=== PATIENT | female | born 1985 | race Caucasian/White ===

== ENCOUNTER → 2017-12-13 11:46 | Outpatient (CLI) | payer MEDICAID, SELFPAY | PROVIDERS: Family Provider Family Medicine; PCP Family Medicine; Visit Provider Physician Assistant | DX: R00.0 Tachycardia, unspecified (principal); R00.2 Palpitations | CPT/HCPCS: 93225; 93226 ==

== ENCOUNTER 2018-04-18 01:29 | Emergency (ER) | payer MEDICAID, SELFPAY ==
[2018-04-18 01:30] VITALS: PULSE 129; RESP 18; TEMP 36.6; O2SAT 99; BMI 18.3
[2018-04-18 01:35] VITALS: BP 144/86; PULSE 129; RESP 17; TEMP 36.6; O2SAT 99
--- NOTE | 2018-04-18 01:48 | RAD_ITS ---
HISTORY: Chest Pain EXAM:XR Chest 1 View: COMPARISON: None FINDINGS: EKG leads in place. Normal heart size. The mediastinum is not widened. Prominent lung volumes. Bilateral nipple shadows, more noticeable on the right. No vascular congestion, pleural effusion, or acute pulmonary infiltration. No pneumothorax. The bony thorax appears intact. IMPRESSION: No acute cardiopulmonary disease. at 0240 Reported and signed by: Florencio Bui MD Electronically Signed: Florencio Bui, at 2:39 EST Tel , Service support , RAD/Chest 1 View (Portable)
--- NOTE | 2018-04-18 01:49 | EKG12_ITS ---
Test Reason : CP Blood Pressure : / mmHG Vent. Rate : 113 BPM Atrial Rate : 113 BPM P-R Int : 128 ms QRS Dur : 092 ms QT Int : 322 ms P-R-T Axes : 073 086 069 degrees QTc Int : 441 ms Sinus tachycardia Otherwise normal ECG Confirmed by AISHWARYA RAHMAN, DON ([id number]), editorial cartoonist JEAN-CLAUDE ZAVALA ([id number]) on 04/23/2018 2:44:00 PM Referred By: VIDYA Confirmed By:DON NEFF MD
[2018-04-18] MEDS: 0.9% Normal Saline 1,000 ML 1000 ML IV (02:01)
[2018-04-18 02:12] LABS: Absolute Lymphocyte Count 1.09 X10^3/ul (0.83-4.51); Absolute Neutrophil Count 1.7 X10^3/uL (2.0-7.7); Basophil# 0.02 X10^3/uL; Basophil% 0.6 % (0-1); Eosinophil# 0.02 X10^3/uL; Eosinophils% 0.6 % (0-5); Hematocrit 36.2 % (37-47); Hemoglobin 12.3 g/dl (12.0-15.0); Lymphocyte # 1.09 X10^3/ul (4.0); Lymphocyte % 35.3 % (19-41); Mean Corpuscular Hgb 28.5 pg (27.0-32.0); Mean Platelet Vol. 10.4 fl (6.2-12.0); Monocyte# 0.23 X10^3/uL; Monocyte% 7.4 % (0-10); Neutrophil # 1.73 X10^3/uL (2.7-7.7); Neutrophil % 56.1 % (47-70); POSITIVE COUNT NO; POSITIVE DIFFERENTIAL NO; POSITIVE MORPHOLOGY NO; Platelet Count 165 K/mm3 (150-450); RBC Distribution Width CV 13.5 % (11.6-14.6); RBC Distribution Width SD 40.8 fl (35.1-43.9); Red Blood Count 4.31 M/mm3 (4.2-5.4); White Blood Count 3.1 K/mm3 (4.4-11.0)
[2018-04-18 02:28] LABS: AST(SGOT) 15 U/L (15-37); Alanine Aminotransfer ALT/SGPT 21 U/L (13-56); Albumin, Serum 3.6 g/dL (3.2-5.0); Alkaline Phosphatase 41 U/L (45-117); Anion Gap 9 (5-15); BUN 12 mg/dL (7-18); BUN/Creat Ratio 17.1 RATIO (10-20); Calcium,Total 8.3 mg/dL (8.5-10.1); Chloride 104 mmol/L (98-107); EST Glomerular Filtration Rate 102 mL/min (>60); Est Glom Filt Rate - Afr Amer 123 mL/min (>60); Estimated Creatinine Clearance 99.07 ml/min; Globulin 3.6 g/dL (2.2-4.2); Glucose 109 mg/dL (74-106); Lipase 75 U/L (73-393); Potassium 3.3 mmol/L (3.5-5.1); Protein, Total 7.2 g/dL (6.4-8.2); Sodium Level 138 mmol/L (136-145)
[2018-04-18] MEDS: Ketorolac 30 MG/ML Syringe IV (02:43)
[2018-04-18 02:53] VITALS: BP 123/83; PULSE 113; RESP 18; TEMP 37.2; O2SAT 100
[2018-04-18 02:53] LABS: Pregnancy, Serum, hCG Quali. NEGATIVE Negative (0-9 Nonpreg)
--- NOTE | 2018-04-18 03:01 | ED.VISSUMM ---
- ER Visit Summary Date of Service: 04/18/18 Chief Complaint: Lesions to the labia History of Present Illness: The patient is a [address] [facility]. She reports that she had an IUD placed approximately 1 month ago. She reports that 4 days ago she noticed a lesion on her right labia majora. She reports that she has had watery drainage from this area. She now has a lesion on her left labia majora. States that she has burning pain at times. However, she is not having any pain currently. She is sexually active with a single partner. They have been having unprotected intercourse. She does not get cold sores and he does not either. Patient on review of systems reports she has had a fever to 100.5 degrees. She is also had chills and cold sweats. She reports that she has had abdominal pain that is 9 out of 10 at worst and 2 out of 10 currently. It began 3 days ago. Is been constant today. States this is worsened by nothing relieved by nothing. She has had nausea without vomiting. No diarrhea. No dysuria or frequency. Patient also complains that she has chest pain that began yesterday. States that lasts hours at a time. This is not brought on or worsened by exertion. Nothing makes this better. 6 out of 10 at onset. She is pain-free currently. She reports that she is been mildly short of breath with this as well. She denies any sore throat or cough. She reports that she has a headache that comes and goes. Is not present now. It is 3 out of 10 at worst and last seconds at a time. She also complains of generalized weakness. Physical Examination: Vitals: 97.9, 144/86, 129, 18, 98% room air which is not hypoxic. General: Well-nourished and well-developed. Head: Normocephalic atraumatic. Neck: Supple, no lymphadenopathy. No JVD. Nontender. Cardiovascular: Tachycardic regular rhythm. No murmurs. Respiratory: No respiratory distress. Clear to auscultation bilaterally. Abdominal: Soft, nontender, nondistended, normal bowel sounds. No guarding, rebound, or peritoneal signs. : Lesion x3 to the right labia majora that are scabbed over. There is also one lesion on the left labia majora. The cervix is inflamed with a moderate amount of a thin, cloudy drainage. The IUD strings are in place. Back: Nontender. Extremities: Nontender, no edema. Skin: Normal color, no rash. Neurologic: Alert and oriented ?3. Cranial nerves II through XII are intact. Normal strength and sensation. Psych: Normal affect. Test Results: EKG shows sinus tach 113 with no acute changes. Troponin is negative. test is negative. LFTs are marked for an alk phos of 41. Lipase is normal. Chem-7 is more for potassium 3.3, glucose of 109, calcium 8.3. CBC is marked for a white count of 3.1 and hematocrit of 36.2. Chest x-ray is normal. Emergency Department Course and Treatment: Patient was given a liter of normal saline. She was treated with Toradol IV and acyclovir p.o. A herpes culture was sent off. Treatment Plan: Patient was discussed with Dr. Jaqueline Potts. This time she will be discharged with acyclovir and [place]. Instructed to follow-up today for repeat exam. Return to the emergency department for any worsening symptoms. Disposition: To home in improved and stable condition. Impression: 1. Vaginal lesions. 2. Atypical chest pain. This note was generated with [employer] dictation software. It may contain incorrect words, spelling, and punctuation that were not noted in review of the chart prior to signing ED Disposition - Plan for ED Patient: Chief Complaint: Abscess Instructions: ED Herpes Simplex Virus Type 2 Prescriptions: Hydrocodone Bitart/Apap 5-325 [[place] 5MG-325MG] 1 tablet PO Q4H PRN PRN 2 Days #10 tablet PRN Reason: Pain Naproxen [Naprosyn] 500 mg PO BID #14 tablet Acyclovir 400 mg PO TID #30 tablet Referrals: Jaqueline Potts MD [STAFF PHYSICIAN] - 1 Day for another exam
[2018-04-18 03:02] VITALS: BP 122/80; PULSE 107; RESP 18; O2SAT 100
--- NOTE | 2018-04-18 03:04 | ED.DCSUM_ITS ---
- ER Visit Summary Date of Service: 04/18/18 Chief Complaint: Lesions to the labia History of Present Illness: The patient is a [address] Godfrey [facility]. She reports that she had an IUD placed approximately 1 month ago. She reports that 4 days ago she noticed a lesion on her right labia majora. She reports that she has had watery drainage from this area. She now has a lesion on her left labia majora. States that she has burning pain at times. However, she is not having any pain currently. She is sexually active with a single partner. They have been having unprotected intercourse. She does not get cold sores and he does not either. Patient on review of systems reports she has had a fever to 100.5 degrees. She is also had chills and cold sweats. She reports that she has had abdominal pain that is 9 out of 10 at worst and 2 out of 10 currently. It began 3 days ago. Is been constant today. States this is worsened by nothing relieved by nothing. She has had nausea without vomiting. No diarrhea. No dysuria or frequency. Patient also complains that she has chest pain that began yesterday. States that lasts hours at a time. This is not brought on or worsened by exertion. Nothing makes this better. 6 out of 10 at onset. She is pain-free currently. She reports that she is been mildly short of breath with this as well. She denies any sore throat or cough. She reports that she has a headache that comes and goes. Is not present now. It is 3 out of 10 at worst and last seconds at a time. She also complains of generalized weakness. Physical Examination: Vitals: 97.9, 144/86, 129, 18, 98% room air which is not hypoxic. General: Well-nourished and well-developed. Head: Normocephalic atraumatic. Neck: Supple, no lymphadenopathy. No JVD. Nontender. Cardiovascular: Tachycardic regular rhythm. No murmurs. Respiratory: No respiratory distress. Clear to auscultation bilaterally. Abdominal: Soft, nontender, nondistended, normal bowel sounds. No guarding, rebound, or peritoneal signs. : Lesion x3 to the right labia majora that are scabbed over. There is also one lesion on the left labia majora. The cervix is inflamed with a moderate amount of a thin, cloudy drainage. The IUD strings are in place. Back: Nontender. Extremities: Nontender, no edema. Skin: Normal color, no rash. Neurologic: Alert and oriented ?3. Cranial nerves II through XII are intact. Normal strength and sensation. Psych: Normal affect. Test Results: EKG shows sinus tach 113 with no acute changes. Troponin is negative. test is negative. LFTs are marked for an alk phos of 41. Lipase is normal. Chem-7 is more for potassium 3.3, glucose of 109, calcium 8.3. CBC is marked for a white count of 3.1 and hematocrit of 36.2. Chest x- ray is normal. Emergency Department Course and Treatment: Patient was given a liter of normal saline. She was treated with Toradol IV and acyclovir p.o. A herpes culture was sent off. Treatment Plan: Patient was discussed with Dr. Jaqueline Potts. This time she will be discharged with acyclovir and [place]. Instructed to follow-up today for repeat exam. Return to the emergency department for any worsening symptoms. Disposition: To home in improved and stable condition. Impression: 1. Vaginal lesions. 2. Atypical chest pain. This note was generated with [employer] dictation software. It may contain incorrect words, spelling, and punctuation that were not noted in review of the chart prior to signing ED Disposition - Plan for ED Patient: Chief Complaint: Abscess Instructions: ED Herpes Simplex Virus Type 2 Prescriptions: Hydrocodone Bitart/Apap 5-325 [[place] 5MG-325MG] 1 tablet PO Q4H PRN PRN 2 Days #10 tablet PRN Reason: Pain Naproxen [Naprosyn] 500 mg PO BID #14 tablet Acyclovir 400 mg PO TID #30 tablet Referrals: Jaqueline Potts MD [STAFF PHYSICIAN] - 1 Day for another exam
[2018-04-18] MEDS: HYDROcodone Bitartrate/Apap 5/325 Tablet PO (03:13)
[2018-04-18] MEDS: Acyclovir 200 MG Capsule 400 MG PO (03:16)
[2018-04-18 04:45] LABS: Chlamydia Trachomatis by PCR Negative (Negative); Neisserai gonorrhoeae by PCR Negative (Negative); Probe Check PASS; Sample Adequacy Control PASS; Specimen Processing Control PASS
--- NOTE | 2018-04-25 20:11 | ED.RN ---
Pt was notified of positive herpes culture. Pt was already treated appropriately with acyclovir. Pt reminded to follow up with Dr. Potts. Pt denies further questions.
== END 2018-04-18 03:19 | disposition home or self-care (01) ==
PROVIDERS: Emergency Provider Emergency Medicine; Family Provider Family Medicine; PCP Family Medicine
DX: N90.89 Other specified noninflammatory disorders of vulva and perineum (principal); R07.89 Other chest pain; R50.9 Fever, unspecified; R06.00 Dyspnea, unspecified; R10.9 Unspecified abdominal pain; R10.30 Lower abdominal pain, unspecified; R11.0 Nausea; R53.1 Weakness; Z85.820 Personal history of malignant melanoma of skin; Z97.5 Presence of (intrauterine) contraceptive device; F17.200 Nicotine dependence, unspecified, uncomplicated
CPT/HCPCS: 71045; 80053; 83690; 84484; 84703; 85025; 87255; 87491; 87591; 93005; 96361; 96374; 99284; J7030; A4216

== ENCOUNTER 2019-02-04 20:30 | Emergency (ER) | payer MEDICAID, SELFPAY ==
[2019-02-04 20:31] VITALS: BP 160/84; PULSE 121; RESP 18; TEMP 36.4; O2SAT 100; BMI 23.4
--- NOTE | 2019-02-04 20:44 | EKG12_ITS ---
Test Reason : CHEST OTHER Blood Pressure : / mmHG Vent. Rate : 097 BPM Atrial Rate : 097 BPM P-R Int : 128 ms QRS Dur : 090 ms QT Int : 340 ms P-R-T Axes : 055 083 072 degrees QTc Int : 431 ms Normal sinus rhythm Normal ECG Confirmed by CHANTELLE GRIDER ([id number]), sound editor ONELIA GLOVER ([id number]) on 02/07/2019 11:16:20 AM Referred By: AMAURY Confirmed By:CHANTELLE GRIDER
--- NOTE | 2019-02-04 20:45 | ED.VIS.GEN ---
History of Present Illness Chief Complaint: Chest Other Informant: Patient Onset: Yesterday Context: Sudden Onset Timing: Continuous, Waxes and wanes Quality: Left-sided chest pain Location: Left side anterior axillary line to posterior axillary line ribs 8-12 Current Severity: Mild Maximum Severity: Severe Worsened by: Breathing Relieved by: Nothing Associated Symptoms: Dyspnea and dyspnea on exertion Narrative: She is a 33-year-old woman who presents with pleuritic left-sided chest pain that started 2 days ago. She has no URI symptoms. There is no recent history of trauma. She states she had trauma to her chest 3 years ago. This was a work-related issue. She denies dysuria, frequency, urgency or hematuria. She denies history of renal ureterolithiasis. She denies rhinorrhea, congestion or postnasal drainage. She denies cough. She denies referred pain. She does report nausea without vomiting diarrhea. She has not noted a rash. Prior similar symptoms: No Recent Illness/Hospitalization: No - Past Medical History (1) No significant past medical history Status: Acute Past Medical History - Allergies and Home Meds Allergies/Adverse Reactions: Allergies No Known Allergies Allergy (Verified 04/18/18 01:37) Primary Care Physician: NOT,DEFINED [NON-STAFF] - Prior records reviewed: No Past Medical History: None Surgical History: no surgical history Lives: Alone Smoking Status: Current every day smoker Alcohol: Rare Drugs: None Review of Systems General: Denies: Chills, Fever, Subjective, Sweats Eyes: Denies: Visual changes - bilaterally, Diplopia ENT: Denies: Rhinorrhea, Sore throat Cardiovascular: Reports: Chest pain. Denies: Palpitations, Heart racing, -, - Respiratory: Reports: Dyspnea, Dyspnea on exertion. Denies: Cough, Sputum, Orthopnea, Paroxysmal nocturnal dyspnea, -, - Gastrointestinal: Denies: Abdominal pain, Nausea, Vomiting, Diarrhea, Melena, Hematochezia Genitourinary: Denies: Dysuria, Hematuria, Frequency Musculoskeletal: Denies: Myalgias, Arthralgias, Neck pain, Back pain, Swelling, Extremity Pain Skin: Denies: Rash, Abscess, Wounds Neurological: Denies: Headache, Weakness, Numbness Hematologic: Denies: Easy bruising, Easy bleeding Physical Exam Vital Signs/Narrative: Vital Signs Temp Pulse Resp BP Pulse Ox 02/04/19 20:31 97.5 F L 121 H 18 160/84 H 100 Inital Vital Signs reviewed: Yes General: Well nourished, Well developed, No Acute Distress Head: Normocephalic, Atraumatic Eyes: Perrl, EOMI ENT: Moist mucous membranes, No rhinorrhea Neck: Supple, Nontender Cardiovascular: Regular rate, Regular rhythm, No murmurs, Normal S1, Normal S2 Respiratory: No distress, CTA bilaterally, Chest tenderness - Left anterior axial line to posterior axillary line over ribs 8 through 12. Abdomen: Soft, Nontender, Nondistended, Normal bowel sounds, No masses. Negative for: Hepatomegaly, Splenomegaly Back: Nontender, Normal Inspection Extremities: Nontender, No edema Skin: Normal color, No rash, No Trauma. Negative for: Cyanosis, Diaphoresis, Jaundice Neurological: Alert, Oriented x3, Cranial nerves II-XII grossly intact, Normal Strength, Normal Sensation Psychological: Normal affect, Normal Mood Diagnostic/Tx/Re-eval Chest X-Ray - ED: 2 View, Read by ED Physician, - - The cardiac size and silhouette are normal. There is hyper aeration of the lungs. Osseous structures appear normal. There is no evidence of pneumothorax or effusion. X-ray was interpreted at 2117. 02/04/19 21:05 Chest PA and Lateral [RAD] Stat Laboratory Results 02/04/19 02/04/19 02/04/19 20:55 20:55 20:55 WBC 6.5 RBC 4.70 Hgb 14.2 Hct 42.9 MCV 91.3 MCH 30.2 MCHC 33.1 RDW Std Deviation 40.9 RDW Coeff of Yessica 12.3 Plt Count 241 MPV 10.5 Immature Gran % (Auto) 0.200 Neut % (Auto) 48.9 Lymph % (Auto) 43.2 H Terry % (Auto) 4.7 Eos % (Auto) 2.1 Baso % (Auto) 0.9 Absolute Neuts (auto) 3.2 Absolute Lymphs (auto) 2.82 Nucleated RBC % 0 D-Dimer Quant (PE/DVT) < 0.27 L Sodium 141 Potassium 3.2 L Chloride 106 Carbon Dioxide 28.0 Anion Gap 7 BUN 10 Creatinine 0.83 Estim Creat Clear Calc 92.87 Est GFR (MDRD) Af Amer 101 Est GFR (MDRD) Non-Af 84 BUN/Creatinine Ratio 12.1 Glucose 111 H Calcium 9.2 Serum , Qual 02/04/19 20:55 WBC RBC Hgb Hct MCV MCH MCHC RDW Std Deviation RDW Coeff of Yessica Plt Count MPV Immature Gran % (Auto) Neut % (Auto) Lymph % (Auto) Terry % (Auto) Eos % (Auto) Baso % (Auto) Absolute Neuts (auto) Absolute Lymphs (auto) Nucleated RBC % D-Dimer Quant (PE/DVT) Sodium Potassium Chloride Carbon Dioxide Anion Gap BUN Creatinine Estim Creat Clear Calc Est GFR (MDRD) Af Amer Est GFR (MDRD) Non-Af BUN/Creatinine Ratio Glucose Calcium Serum , Qual NEGATIVE Laboratory test results are normal. test was negative. - Rhythm Strip Rhythm Strip: Sinus Tach Rate: 104 Ectopy: None - EKG Initial EKG Interpretation: Sinus Rhythm - EKG reveals a sinus rhythm rate of 97. MS interval is 120 ms. QS duration 90 ms. QT duration 340 ms. [place] is normal. The EKG is normal. - Medical Decision Making Patient is not PERC negative. Will obtain d-dimer. Chest x-ray was obtained to assess for pneumonia, pneumothorax or other cause of pleuritic chest pain. EKG was obtained and reveals a sinus rhythm and no evidence of ischemia. test was obtained in the event that a CTA of the chest was needed. Basic metabolic panel was obtained to assess renal function. With normal d-dimer and normal chest x-ray will treat with NSAIDs for pleuritic chest pain. ED Disposition - Plan for ED Patient: Disposition: Home or Assisted Living Diagnosis: Pleuritic chest pain Instructions: Pleurisy Prescriptions: Naproxen [Naprosyn] 500 mg PO BID #14 tab Transmission Status: Pending to [facility] Referrals: NOT,DEFINED [NON-STAFF] - Additional Instructions: Follow-up with your primary care provider at the [facility] if no improvement in 3 to 5 days.
[2019-02-04] MEDS: Ketorolac 15 MG/ML Vial IV (21:00)
[2019-02-04 21:03] LABS: Absolute Lymphocyte Count 2.82 X10^3/uL (0.83-4.51); Absolute Neutrophil Count 3.2 X10^3/uL (2.0-7.7); Basophil# 0.06 X10^3/uL; Basophil% 0.9 % (0-1); Eosinophil# 0.14 X10^3/uL; Eosinophils% 2.1 % (0-5); Hematocrit 42.9 % (37-47); Hemoglobin 14.2 g/dL (12.0-15.0); Lymphocyte # 2.82 X10^3/ul (4.0); Lymphocyte % 43.2 % (19-41); Mean Corp Hgb Conc 33.1 g/dL (32-36); Mean Corpuscular Hgb 30.2 pg (27.0-32.0); Mean Corpuscular Volume 91.3 fL (81-99); Mean Platelet Vol. 10.5 fl (6.2-12.0); Monocyte# 0.31 X10^3/uL; Monocyte% 4.7 % (0-10); NRBC Flagged by Analyzer 0 % (0-5); Neutrophil # 3.19 X10^3/uL (2.7-7.7); Neutrophil % 48.9 % (47-70); Platelet Count 241 K/mm3 (150-450); RBC Distribution Width CV 12.3 % (11.6-14.6); RBC Distribution Width SD 40.9 fl (35.1-43.9); White Blood Count 6.5 K/mm3 (4.4-11.0)
--- NOTE | 2019-02-04 21:05 | RAD_ITS ---
STUDY: X-RAY CHEST REASON FOR EXAM: Female, 33 years old. left sided pleuritic chest pain and dyspnea TECHNIQUE: PA and lateral views of the chest. COMPARISON: April 18, 2018 FINDINGS: The lungs are clear and expanded. There is no demonstrated pleural abnormality. Normal size heart. Normal mediastinum and felipe. Normal visualized pulmonary arteries. Normal visualized aortic arch and descending thoracic aorta. Normal visualized thoracic spine. Normal visualized ribs, clavicles, and shoulders. There is no demonstrated abnormality of the visualized soft tissue structures of the upper abdomen. RAD/Chest PA and Lateral IMPRESSION: Normal x-ray examination of the chest. Electronically Signed: Giovani gAuilar MD at 21:27 EST , Service support ,
[2019-02-04 21:21] LABS: Internal QC Validated? YES +Cl - CLEAR BKGD; Pregnancy, Serum, hCG Quali. NEGATIVE Negative
[2019-02-04 21:22] LABS: Anion Gap 7 (5-15); BUN 10 mg/dL (7-18); BUN/Creat Ratio 12.1 RATIO (10-20); Calcium,Total 9.2 mg/dL (8.5-10.1); Chloride 106 mmol/L (98-107); Creatinine, Serum 0.83 mg/dL (0.55-1.02); EST Glomerular Filtration Rate 84 mL/min (>60); Est Glom Filt Rate - Afr Amer 101 mL/min (>60); Estimated Creatinine Clearance 92.87 ml/min; Glucose 111 mg/dL (74-106); Potassium 3.2 mmol/L (3.5-5.1); Sodium Level 141 mmol/L (136-145)
[2019-02-04 21:25] LABS: D-Dimer Quantitative (DVT/PE) < 0.27 FEU/ug/m (0.27-0.49)
[2019-02-04 21:48] VITALS: PULSE 99; RESP 12; O2SAT 98
== END 2019-02-04 21:55 | disposition home or self-care (01) ==
PROVIDERS: Emergency Provider Emergency Medicine
DX: R07.89 Other chest pain (principal); R11.0 Nausea; R06.00 Dyspnea, unspecified; F17.200 Nicotine dependence, unspecified, uncomplicated
CPT/HCPCS: 71046; 80048; 84703; 85025; 85379; 93005; 96374; 99284; J7030; A4216

== ENCOUNTER 2019-03-24 13:41 | Emergency (ER) | payer MEDICAID, SELFPAY ==
[2019-03-24 13:42] VITALS: BP 132/97; PULSE 132; RESP 16; TEMP 36.9; O2SAT 100; BMI 20.3
[2019-03-24 14:14] LABS: Mucous, Urine 0 SEEN /hpf (<or=2+)
[2019-03-24 14:17] LABS: Color, Urine Yellow (Yellow); Glucose, Dipstick Normal (Normal); Internal QC Validated? YES +Cl - CLEAR BKGD; Ketone-Dipstick Negative (Negative); Leukocyte Esterase-Dipstick Negative /ul (Negative); Nitrite-Dipstick Negative (Negative); Occult Blood-Urine Negative /ul (Negative); Protein-Dipstick Negative (Negative); Specific Gravity, Urine 1.015 (1.002-1.030); Urine Bilirubin Dipstick Negative (Negative); Urine Clarity Sl. Cloudy (Clear); Urine Urobilinogen Normal (Normal)
[2019-03-24 14:18] LABS: Pregnancy, Urine Negative Negative
[2019-03-24 14:20] LABS: Amorphous Sediment 2+; Bacteria 1+ /hpf (None Seen); Red Blood Cells-Urine 0-5 SEEN /hpf (0-5); Squamous Epithelial Cells - UA 0-5 SEEN /hpf (5-10); White Blood Cells 0-5 SEEN /hpf (0-5)
--- NOTE | 2019-03-24 14:48 | CT_ITS ---
STUDY: CT ABDOMEN AND PELVIS WITHOUT CONTRAST REASON FOR EXAM: Female, 33 years old. Right flank pain RADIATION DOSAGE (If Supplied By Facility): CTDIvol = ( 6.28 ) mGy, DLP = ( 302.9 ) mGycm TECHNIQUE: Transaxial images were obtained from the dome of the diaphragm to the symphysis pubis without oral contrast, and without intravenous contrast. Sagittal and coronal images were reconstructed. Individualized dose optimization techniques were used for this CT. COMPARISON: None. FINDINGS: The visualized lung bases are unremarkable. The visualized portions of the heart are within normal limits. Normal liver. Normal gallbladder and extrahepatic biliary system. Normal spleen. Normal pancreas. Normal bilateral adrenal glands. Normal right kidney. Normal left kidney. There is a punctate 1 mm calcification in the right pelvis, most likely phleboliths with a low probability of being a distal ureteral stone. There is no obscure an hydronephrosis. Normal visualized stomach. Normal small intestine. Normal colon. The appendix is visualized and appears normal. Normal abdominal aorta. Normal inferior vena cava. Normal retroperitoneum. Normal urinary bladder. IUD is in place. Normal abdominal wall. There is inflammatory change in the inferior portion of the gluteal cleft. Normal osseous structures. CT/Abdomen/Pelvis without Cont IMPRESSION: 1. No hydronephrosis. 2. 1 mm right pelvic phlebolith, less likely distal ureteral stone. 3. Inflammatory change in the gluteal cleft. Electronically Signed: Joe Costa, at 16:29 EST Tel , Service support ,
[2019-03-24] MEDS: 0.9% Normal Saline 1,000 ML 125 ML IV (15:00)
[2019-03-24 15:10] LABS: Absolute Neutrophil Count 3.1 X10^3/uL (2.0-7.7); Basophil# 0.03 X10^3/uL; Basophil% 0.6 % (0-1); Eosinophil# 0.08 X10^3/uL; Eosinophils% 1.6 % (0-5); Hematocrit 36.5 % (37-47); Hemoglobin 12.2 g/dL (12.0-15.0); Lymphocyte % 29.6 % (19-41); Mean Corp Hgb Conc 33.4 g/dL (32-36); Mean Corpuscular Hgb 30.1 pg (27.0-32.0); Mean Corpuscular Volume 90.1 fL (81-99); Mean Platelet Vol. 10.4 fl (6.2-12.0); Monocyte# 0.31 X10^3/uL; Monocyte% 6.1 % (0-10); NRBC Flagged by Analyzer 0 % (0-5); Neutrophil # 3.14 X10^3/uL (2.7-7.7); Neutrophil % 61.9 % (47-70); Platelet Count 199 K/mm3 (150-450); RBC Distribution Width CV 12.5 % (11.6-14.6); RBC Distribution Width SD 41.6 fl (35.1-43.9); Red Blood Count 4.05 M/mm3 (4.2-5.4); White Blood Count 5.1 K/mm3 (4.4-11.0)
[2019-03-24 15:26] LABS: Anion Gap 5 (5-15); BUN 11 mg/dL (7-18); BUN/Creat Ratio 14.6 RATIO (10-20); Calcium,Total 8.9 mg/dL (8.5-10.1); Chloride 109 mmol/L (98-107); Creatinine, Serum 0.75 mg/dL (0.55-1.02); EST Glomerular Filtration Rate 94 mL/min (>60); Est Glom Filt Rate - Afr Amer 113 mL/min (>60); Estimated Creatinine Clearance 98.39 ml/min; Glucose 95 mg/dL (74-106); Potassium 3.4 mmol/L (3.5-5.1); Sodium Level 143 mmol/L (136-145)
[2019-03-24 16:04] LABS: Internal QC Validated? YES +Cl - CLEAR BKGD; Pregnancy, Serum, hCG Quali. NEGATIVE Negative
--- NOTE | 2019-03-24 16:41 | ED.VISSUMM ---
- ER Visit Summary Date of Service: 03/24/19 Chief Complaint: [[place] pain] History of Present Illness: The patient is a 33 F [presents to the emergency room with complaint of 2 days of abdominal pain. Patient states initially the pain Started in her back and radiate around the front of the abdomen. Patient states the pain became more severe today and is worse with movement. She had a hard time going up steps at work. Patient states that she has pain in her abdomen when she urinates not so much dysuria. She denies frequency urgency. Patient's last menstrual period was about a month ago and it somewhat irregular and she does have an IUD. Patient does have history of prior gestational diabetes. She is had history of melanoma. Patient has no known drug allergies. She is a smoker.] Physical Examination: [HEENT-PERRLA, EOMI. Cranial nerves II through XII grossly intact. TMs clear. Mucous membranes moist. No adenopathy. Cardiovascular-regular rate and rhythm without murmur or ectopy Lungs-clear to auscultation, chest wall stable without crepitus or subcu emphysema Abdomen-normoactive bowel sounds, soft. Patient has tenderness palpation over right lower quadrant with some guarding. There is no rebound, rigidity, peritoneal signs. Extremities-intact ?4, normal range of motion, normal pulses, atraumatic] Test Results: [CBC with differential obtained was normal. Chemistries normal. Urinalysis normal. hCG was negative. CT scan of the M pelvis showed nothing acute. Appendix was visualized and was normal.] Emergency Department Course and Treatment: [Patient refused any pain medication in department. She was given normal saline on presentation.] Treatment Plan: [Discharged home in stable condition. Patient given a prescription for a few [place] for severe pain should her pain return.] Patient advised to follow-up with her primary care physician 3 to 5 days. Patient advised to return if worsening pain, fever, vomiting, bloody stool, or condition should worsen anyway. Disposition: [Discharged home in stable condition] Impression: [Abdominal pain-etiology uncertain] This note was generated with [employer] software. It may contain incorrect words, spelling, and punctuation that were not noted in review of the chart prior to signing ED Disposition - Plan for ED Patient: Referrals: Care Physician,No Primary [Primary Care Provider] -
--- NOTE | 2019-03-24 16:45 | ED.DEP ---
ED Disposition - Plan for ED Patient: Instructions: FLANK PAIN, Uncertain Cause Prescriptions: Hydrocodone Bitart/Apap 5-325 [[place] 5MG-325MG] 1 tab PO Q4H PRN PRN 2 Days #14 tab PRN Reason: Pain Prescription Printed Referrals: Care Physician,No Primary [Primary Care Provider] - 3-5 Days
[2019-03-24 16:52] VITALS: BP 118/82; PULSE 69; RESP 18; O2SAT 94
== END 2019-03-24 16:54 | disposition short-term general hospital (02) ==
LOC: ED 14:39
PROVIDERS: Emergency Provider Emergency Medicine
DX: R10.31 Right lower quadrant pain (principal); F17.200 Nicotine dependence, unspecified, uncomplicated
CPT/HCPCS: 74176; 80048; 81001; 81025; 84703; 85025; 99283; J7030; A4216

== ENCOUNTER → 2019-10-03 | Outpatient (CLI) | payer MEDICAID, SELFPAY | END | disposition home or self-care (01) | LOC: LABSPEC 11:13 | PROVIDERS: PCP Family Medicine; Referring Provider Family Medicine; Visit Provider Family Medicine | DX: Z20.828 Contact with and (suspected) exposure to other viral communicable diseases (principal) | CPT/HCPCS: 87635; G2023; U0003 ==

== ENCOUNTER 2021-09-30 08:08 | Emergency (ER) | payer MEDICAID, SELFPAY ==
[2021-09-30 08:08] VITALS: BP 161/99; PULSE 122; RESP 16; TEMP 37.3; O2SAT 98; BMI 23.6
--- NOTE | 2021-09-30 08:49 | EX.ED.DYSGE1 ---
HPI History of Present Illness Chief Complaint: Dental Informant: patient Narrative Narrative: Patient complains of dental pain infection and now swelling. She states she went to see her dentist on 15 September. She was placed on amoxicillin. She had been on amoxicillin for an associated problem just within the last couple months. She does not have a known allergy to it. However, toward the end of treatment she started to get swelling of her hands feet and face. She was switched to clindamycin which she has been on for a day but the swelling is still present. The dental pain is not worsening. She is not having swelling at the tooth that is giving her problem. This is more swelling mostly of her face. She has had some tightness in her hands. Skin of her forehead is gotten red but no other hives. She does not have trouble breathing. No coughing or trouble breathing. No abdominal pain nausea or vomiting. PFSH PFSH Home Medications naproxen 500 mg tablet 500 mg PO BID #14 tabs 02/04/19 [Rx Last Taken Unknown] oxycodone-acetaminophen 5 mg-325 mg tablet (Percocet) 1 tab PO Q6H PRN pain 3 days #10 tabs 09/30/21 [Rx Last Taken Unknown] prednisone 20 mg tablet 40 mg PO DAILY #15 tabs 09/30/21 [Rx Last Taken Unknown] Allergy/AdvReac Type Severity Reaction Status Date / Time No Known Allergies Allergy Verified 09/30/21 08:11 Social History Smoking Status: Current every day smoker ROS ROS ED Constitutional Constitutional ED: Denies chills or fever(s) Eyes Eyes: Denies blurry vision, change in vision or diplopia ENT ENT ED: Reports other Details: Dental pain in the left lower jaw as above. But no trouble swallowing. She has had swelling around the eyes and forehead on both sides. ; Denies sore throat Cardiovascular Cardiovascular: Denies chest pain, palpitations or racing heartbeat Respiratory/Chest Respiratory/Chest: Denies cough or dyspnea Gastrointestinal Gastrointestinal: Denies abdominal pain, nausea or vomiting Genitourinary Genitourinary ED: Reports other Details: No change in urine output or frequency of urination. No dysuria. No change in color or odor. ; Denies dysuria Musculoskeletal Musculoskeletal: Reports other Details: Mild swelling around the fingers but no pains. ; Denies arthralgias or myalgias Integumentary Reports rash and other Details: Mild erythema around forehead. Neurologic Neurologic: Denies headache(s) Endocrine Endocrinology: Denies polydipsia or polyuria Hematologic/Lymphatic Hematologic/Lymphatic: Denies easy bleeding or easy bruising Allergic/Immunologic Allergic/Immunologic ED: Reports other Details: She has not had hives. But she has had some erythema mostly around the forehead area. ; Denies urticaria EXAM Physical Exam Const Vital Signs: 09/30/21 08:08 Temperature 99.2 F H Temperature Source Temporal Pulse Rate 122 H Respiratory Rate 16 Blood Pressure 161/99 H Blood Pressure Mean 119 Pulse Ox 98 Oxygen Delivery Method Room Air Positive well nourished and well developed General Appearance ED: well developed and NAD HEENT HEENT Narrative: Patient has some edema around the eyes. A little bit of fullness around the forehead. The face itself is not really swollen. The area over her tooth is not swollen. This is not an abscess that has extended. This is diffuse periorbital mild swelling. This looks more allergic. There is some erythema of the forehead but no true hives. The tooth in the left lower jaw shows large cavity and missing portion but the gum is not significantly red. There is no abscess. Tongue has free motion. No indication of Mateo's angina whatsoever. I do not think her facial swelling is in any way related directly to swelling from this tooth. Eyes Eyes Narrative: Lid swelling upper and lower both eyes as above. But conjunctive was not injected General Eye ED: Negative for pale conjunctiva or scleral icterus Neck supple and no JVD Neck Narrative: No stridor or lymphadenopathy. No swelling on the neck. Chest Wall inspection of chest normal Resp normal respiratory effort and clear to auscultation bilaterally Resp Narrative: No wheeze or difficulty breathing. Auscultation: Negative for wheezes Cardio regular rhythm and no murmurs Rate: other Other Details: Heart rate about 100 now. Peripheral pulses are equal and normal. I hear no murmur. GI normal to inspection, nondistended, normoactive bowel sounds and non-tender Back/Spine no CVA tenderness Extremity normal to inspection Extremity Narrative: She feels as though her rings are tight. I do not see a lot of visible swelling of her hands. There is no edema of the legs at all. She does not feel that the feet are swollen now. I see no hives. General Extremety ED: Negative for edema or tenderness General Extremity: Negative for edema Neuro oriented x3 Skin Skin Narrative: Mild erythema of the forehead. No rash. No hives. MDM MDM MDM Narrative Medical decision making narrative: My initial concern when I saw that she is having swelling with 2 courses of antibiotics as this may have been spreading of a dental abscess. But the tooth looks like it is doing well. I will get her something for pain for this. She has been taking Motrin also for this. She has been taking a 1 to 2 tablets about every 4-6 hours. No change in urine output. I think the swelling is actually most likely allergic and most likely related to the amoxicillin because she had another course of it recently. She has stopped this and is on clindamycin. She will continue clindamycin. I will get her meds for pain. Because she does have the swelling I will give her a short course of steroids. This may cause some decrease inflammation around her tooth also. If she has trouble breathing, rash, swelling at the tooth change in urine output joint pain or other concerns she should return. Discharge Plan Triage Chief Complaint: Dental ED Provider: Bishop Chau Dx/Rx/DC Orders Clinical Impression: Allergy to amoxicillin, Pain, dental Instructions: ED ADVERSE DRUG REACTION Allergic, ED Dental Pain Prescriptions: New oxycodone-acetaminophen [Percocet] 5-325 mg tablet 1 tab PO Q6H PRN (Reason: pain) 3 Days Qty: 10 0RF prednisone 20 mg tablet 40 mg PO DAILY Qty: 15 0RF No Action naproxen 500 MG tablet 500 mg PO BID Qty: 14 0RF Primary Care Provider: Jr Godfrey Referrals: Jr Godfrey MD [Primary Care Provider] - 1-2 Days if not improving Activity Restrictions/Additional Instructions: Follow-up with your dentist as soon as possible. Disposition Disposition: Home, Self Care
[2021-09-30 09:14] VITALS: BP 119/75; PULSE 72; RESP 16; TEMP 37.1; O2SAT 98
[2021-09-30] MEDS: predniSONE 20 MG Tablet 60 MG PO (09:15)
== END 2021-09-30 09:35 | disposition home or self-care (01) ==
PROVIDERS: Emergency Provider Emergency Medicine; PCP Family Medicine; Visit Provider Emergency Medicine
DX: R22.0 Localized swelling, mass and lump, head (principal); K02.9 Dental caries, unspecified; F17.200 Nicotine dependence, unspecified, uncomplicated; T36.0X5A Adverse effect of penicillins, initial encounter
CPT/HCPCS: 99282

== ENCOUNTER 2021-12-11 16:24 | Emergency (ER) | payer MEDICAID, SELFPAY ==
[2021-12-11 16:24] VITALS: BP 122/73; PULSE 104; RESP 16; TEMP 36.4; O2SAT 98; BMI 22.0
--- NOTE | 2021-12-11 17:01 | CT_ITS ---
STUDY: CT CERVICAL SPINE WITHOUT CONTRAST REASON FOR EXAM: Female, 36 years old. trauma, pain RADIATION DOSAGE (If Supplied By Facility): CTDIvol = ( 15.42 ) mGy, DLP = ( 281.96 ) mGycm TECHNIQUE: High resolution transaxial imaging was performed without contrast material. Sagittal and coronal images were reconstructed. Individualized dose optimization techniques were used for this CT. COMPARISON: None FINDINGS: Normal craniovertebral junction. Normal anterior atlantoaxial articulation. Normal odontoid process. Normal cervical lordosis. Normal vertebral bodies and posterior osseous elements. C2-3: Normal endplates. Normal disc height and morphology. Normal central canal and intervertebral neuroforamina. C3-4: Normal endplates. Normal disc height and morphology. Normal central canal and intervertebral neuroforamina. C4-5: Normal endplates. Normal disc height and morphology. Normal central canal and intervertebral neuroforamina. C5-6: Normal endplates. Normal disc height and morphology. Normal central canal and intervertebral neuroforamina. C6-7: Normal endplates. Normal disc height and morphology. Normal central canal and intervertebral neuroforamina. C7-T1: Normal endplates. Normal disc height and morphology. Normal central canal and intervertebral neuroforamina. Normal visualized soft tissue structures. CT/Spine Cervical without Contras IMPRESSION: Normal unenhanced CT examination of the cervical spine. Electronically Signed: Parminder Jeffery MD at 17:56 EDT ,
--- NOTE | 2021-12-11 17:01 | CT_ITS ---
STUDY: CT BRAIN WITHOUT CONTRAST REASON FOR EXAM: Female, 36 years old. trauma, headache/vomiting RADIATION DOSAGE (If Supplied By Facility): CTDIvol = ( 44.99 ) mGy, DLP = ( 779.24 ) mGycm TECHNIQUE: Transaxial CT imaging of the brain was performed without administration of intravenous contrast material. Individualized dose optimization techniques were used for this CT. COMPARISON: No relevant priors. FINDINGS: Normal soft tissue structures. Normal calvarium. Normal size ventricles and extra-axial spaces for the patient''s age. Normal white matter tracts of the cerebral hemispheres. Normal basal ganglia and thalami. Normal brainstem. Normal cerebellum. There is no intracranial hemorrhage. There are no findings of an acute ischemic infarction. Normal visualized paranasal sinuses. CT/Brain/Head without Contrast IMPRESSION: Normal unenhanced CT scan of the brain. Electronically Signed: Parminder Jeffery MD at 17:54 EDT ,
--- NOTE | 2021-12-11 17:10 | EDS_ITS ---
HPI History of Present Illness Chief Complaint: Head Injury Informant: patient Onset/Context/Timing Onset: Yesterday Mechanism/Context: Fall Location of pain/injuries: - (head) Quality of Pain: Aching Location: all over Current Severity: Mild Maximum Severity: Mild Worsened by: n/a Relieved by: n/a Associated Symptoms Associated Symptoms: Negative for Parasthesias, Inability to ambulate or Loss of consciousness Narrative Narrative: Patient was drinking last night, she was sitting in a foldable camping chair outside, she went to sit down in it and as she bent her legs and lean forward, she fell forward instead of into the chair, hitting her forehead on the ground. She had no loss of consciousness but immediately upon getting up and sitting in a chair she started vomiting. This morning, her neck is sore especially to perform extension movements, it is diffuse and nonfocal. She has headache, every time she turns her head she becomes vertiginous and vomits, she has vomited 5 or 6 times total. Nonbloody, nonbilious. She denies any pain elsewhere. She did have some tingling in her legs while she was driving at 1 point today, but this was associated with having another episode of dizziness and nausea/vomiting. She pulled over until the past and it did resolve and now she denies any peripheral neurologic symptoms. PFSH PFSH Medical History no medical history no medical history Home Medications meclizine 25 mg tablet 25 mg PO Q8H PRN PRN Dizziness #20 tabs 12/11/21 [Rx Last Taken Unknown] ondansetron 4 mg disintegrating tablet 8 mg PO Q8H PRN PRN Nausea #20 tabs 12/11/21 [Rx Last Taken Unknown] Allergy/AdvReac Type Severity Reaction Status Date / Time No Known Allergies Allergy Verified 12/11/21 16:27 Surgical History no surgical history no surgical history Social History Smoking Status: Former smoker ROS ROS ED Constitutional Constitutional ED: Denies chills or fever(s) Eyes Eyes: Denies change in vision or diplopia ENT ENT ED: Denies ear pain, rhinorrhea, sore throat or tinnitus Cardiovascular Cardiovascular: Denies chest pain or palpitations Respiratory/Chest Respiratory/Chest: Denies cough or dyspnea Gastrointestinal Gastrointestinal: Reports nausea and vomiting; Denies abdominal pain or diarrhea Genitourinary Genitourinary ED: Denies dysuria or hematuria Musculoskeletal Musculoskeletal: Reports neck pain; Denies back pain Integumentary Denies abscess or rash Neurologic Neurologic: Reports headache(s) and vertigo; Denies paresthesias or weakness Psychiatric Psychiatric: Denies anxiety or suicidal thoughts EXAM Physical Exam Const Vital Signs: 12/11/21 16:24 12/11/21 16:43 12/11/21 18:30 Temperature 97.5 F L Temperature Source Temporal Pulse Rate 104 H Respiratory Rate 16 16 Respiratory Effort Normal Non-Labored Respiratory Pattern Normal Blood Pressure 122/73 H 105/70 Blood Pressure Mean 89 81 Pulse Ox 98 12/11/21 20:06 Temperature Temperature Source Pulse Rate Respiratory Rate Respiratory Effort Respiratory Pattern Blood Pressure 104/72 Blood Pressure Mean 82 Pulse Ox Positive well nourished and well developed General Appearance ED: well developed and NAD HEENT Reports TM's clear and moist mucous membranes normocephalic and atraumatic Tympanic Membrane ED: Yes TM's clear Eyes PERRL and EOMs intact bilaterally Eyes Narrative: No vertical or rotatory or not fatigable horizontal nystagmus Neck full ROM and supple Resp normal respiratory effort and clear to auscultation bilaterally Cardio regular rate, regular rhythm and no murmurs GI non-tender and non-distended Auscultation: normoactive bowel sounds Palpation: soft Back/Spine no CVA tenderness General Back: other FROM Extremity normal to inspection General Extremety ED: Negative for edema, pulses abnormal or tenderness General Extremity: Negative for edema or pulses abnormal Neuro oriented x3, CN's II-XII intact bilaterally and no sensory deficits noted Neuro Narrative: Normal [id number] and [id number] bilaterally [place] Coma Scale: document GCS findings Spontaneous Obeys Commands Oriented 15 Sensorium / Orientation: awake and alert Motor Exam: strength 5/5 throughout Psych mental status grossly normal and thought process normal Skin no rashes or lesions noted and no wounds MDM MDM MDM Narrative Medical decision making narrative: CT of the head and cervical spine were obtained and are negative. Patient was given IV fluids, Zofran and meclizine she does feel better on reevaluation, and is discharged with prescriptions for the same. I suspect that this is concussion that should self-resolved, if it does not within the next 5 days or so, I recommend close outpatient follow-up she is comfortable with that plan. Radiography Diagnostic Testing: Clinical Impression(s) from Imaging Studies Brain CT 12/11/21 17:01 IMPRESSION: Normal unenhanced CT scan of the brain. Electronically Signed: Parminder Jeffery MD at 17:54 EDT , Cervical Spine CT 12/11/21 17:01 IMPRESSION: Normal unenhanced CT examination of the cervical spine. Electronically Signed: Parminder Jeffery MD at 17:56 EDT , Discharge Plan Triage Chief Complaint: Head Injury ED Provider: Abundio Walker Dx/Rx/DC Orders Clinical Impression: Closed head injury with concussion, Acute cervical myofascial strain, Pare sthesias, Peripheral vertigo Instructions: ED Concussion, ED Vertigo, Unspecified Prescriptions: New meclizine [meclizine] 25 mg tablet 25 mg PO Q8H PRN PRN (Reason: Dizziness) Qty: 20 0RF ondansetron [ondansetron] 4 mg tablet,disintegrating 8 mg PO Q8H PRN PRN (Reason: Nausea) Qty: 20 0RF Primary Care Provider: Jr Godfrey Referrals: Jr Godfrey MD [Primary Care Provider] - 1 Week if not improving Activity Restrictions/Additional Instructions: Ibuprofen and/or Tylenol as needed for headaches Disposition Disposition: Home, Self Care
[2021-12-11] MEDS: 0.9% Normal Saline 1,000 ML 999 ML IV (17:15)
[2021-12-11] MEDS: Ondansetron 4 MG/2 ML Vial IV (17:16)
[2021-12-11] MEDS: Meclizine HCl 25 MG Tablet PO (17:16)
[2021-12-11 18:30] VITALS: BP 105/70; RESP 16
[2021-12-11 20:06] VITALS: BP 104/72
[2021-12-11 20:39] VITALS: BP 107/70; PULSE 80; RESP 18
== END 2021-12-11 20:49 | disposition home or self-care (01) ==
PROVIDERS: Emergency Provider Emergency Medicine; PCP Family Medicine; Visit Provider Emergency Medicine
DX: S06.0X0A Concussion without loss of consciousness, initial encounter (principal); S16.1XXA Strain of muscle, fascia and tendon at neck level, initial encounter; Z87.891 Personal history of nicotine dependence; W19.XXXA Unspecified fall, initial encounter; H81.399 Other peripheral vertigo, unspecified ear
CPT/HCPCS: 70450; 72125; 96361; 96374; 99283; J7030; A4216; J2405